=== PATIENT | male | born 1955 | race Two or more races ===

== ENCOUNTER 2023-01-12 05:24 | Inpatient (IN) | payer OTHER ==
[2023-01-12] VITALS (13 sets, daily range): BP systolic 103–185; BP diastolic 50–88; TEMP 98.1–98.8; O2SAT 91–98
[~2023-01-12] VITALS: Ht 167.6 cm; Wt 97.5 kg
[2023-01-12 06:18] LABS: BASOPHILS # (AUTO) 0.1 K/uL (0.0-0.2); BASOPHILS % (AUTO) 0.4 % (0.0-2.0); EOSINOPHILS # (AUTO) 0.1 K/uL (0.0-0.7); EOSINOPHILS % (AUTO) 0.6 % (0.0-6.0); HEMATOCRIT 38 % (39-51); HEMOGLOBIN 12.8 g/dL (13.5-17.5); LYMPHOCYTES # (AUTO) 1.7 K/uL (0.8-4.8); LYMPHOCYTES % (AUTO) 13.5 % (20.0-44.0); MEAN CORPUSCULAR HEMOGLOBIN 30 PG (26.0-33.0); MEAN CORPUSCULAR HGB CONC 34 g/dl (31.0-36.0); MEAN CORPUSCULAR VOLUME 90 fL (80-96); MONOCYTES % (AUTO) 7.8 % (2.0-12.0); NEUTROPHILS % (AUTO) 77.7 % (43.0-81.0); PLATELET COUNT (AUTO) 301 K/uL (150-450); RED BLOOD CELL COUNT(AUTO) 4.27 MIL/uL (4.5-6.0); WHITE BLOOD COUNT (AUTO) 12.9 K/uL (4.3-11.0)
[2023-01-12 06:31] LABS: CALCIUM, SERUM 9.3 mg/dL (8.5-10.1); POTASSIUM 4.1 mmol/L (3.5-5.1)
[2023-01-12] MEDS ORDERED: GELATIN SPONGE,ABSORBABLE 1 SPONGE SPONGE TP ONE (06:48)
[2023-01-12] MEDS ORDERED: LIDOCAINE 1% INJ 50 ML MDV IJ ONE (06:48)
[2023-01-12] MEDS ORDERED: CELLULOSE,OXIDIZED 1 EA PACK MC ONE (06:48)
[2023-01-12] MEDS ORDERED: THROMBIN (BOVINE) 5,000 UNITS VIAL TP ONE (06:49)
[2023-01-12] MEDS ORDERED: HEMOSTATIC MATRIX 8 ML 1 EACH PAD MC ONE (07:00)
[2023-01-12] MEDS ORDERED: FENTANYL PF 250MCG/5ML AMPUL ONE (07:25)
[2023-01-12] MEDS ORDERED: ROCURONIUM BROMIDE 50 MG/5 ML ONE ×2 (07:26→09:33)
[2023-01-12] MEDS ORDERED: INSULIN REGULAR, HUMAN 100 UNIT/ML 10 ML VIAL ONE (07:34)
[2023-01-12] MEDS ORDERED: BUPIVACAINE 0.5 % PF 150 MG/30 ML VIAL ONE (07:51)
[2023-01-12] MEDS ORDERED: ROPIVACAINE HCL 0.5% 5 MG/ML 30ML VIAL ONE (08:41)
[2023-01-12] MEDS ORDERED: ROPIVACAINE HCL 0.5% 5 MG/ML 30ML VIAL IJ ONE (08:52)
[2023-01-12] MEDS ORDERED: HEPARIN SODIUM, PORCINE 5000 UNITS/1 ML VIAL ONE ×2 (08:53)
[2023-01-12] MEDS ORDERED: NTG 50 MG/D5W250 ML BOTTL 250 ML IV PRN (09:00)
[2023-01-12] MEDS ORDERED: POLYMYXIN B SULFATE 500,000 UNITS ONE (09:24)
[2023-01-12] MEDS ORDERED: BACITRACIN ZINC OINT (15 GM) 15 GM TUBE TP ONE (10:08)
[2023-01-12] MEDS ORDERED: BACITRACIN ZINC OINT PACKET 1 EA PACKET TP ONE (10:09)
[2023-01-12] MEDS ORDERED: FENTANYL PF 100MCG/2ML AMPUL ONE (10:48)
[2023-01-12] MEDS ORDERED: MORPHINE SULFATE INJ 4 MG/ML DISP.SYRIN IV PRN (11:30)
[2023-01-12] MEDS ORDERED: HYDROCODONE/APAP 7.5/325MG 1 EACH TABLET PO PRN (11:30)
[2023-01-12] MEDS: dexaMETHasone SOD PHOSPHATE 4 MG/ML VIAL IV SCH ×2 (11:44→20:44)
[2023-01-12] MEDS: IV NS 0.9% 1,000 ML IV PRN ×2 (11:44→23:51)
[2023-01-12] MEDS: CLONIDINE HCL 0.1 MG TABLET PO PRN (11:45)
[2023-01-12] MEDS: MORPHINE SULFATE INJ 2 MG/ML DISP.SYRIN IV PRN (11:58)
[2023-01-12] MEDS ORDERED: MENTHOL/CETYLPYRD (CEPACOL) 1 LOZ LOZENGE PO PRN (12:00)
[2023-01-12] MEDS ORDERED: ONDANSETRON HCL/PF 4 MG/2 ML VIAL IV PRN (12:00)
[2023-01-12] MEDS ORDERED: AMLO10TA4 PO (12:14)
[2023-01-12] MEDS ORDERED: SITA100T PO (12:14)
[2023-01-12] MEDS ORDERED: ACET-868 PO (12:14)
[2023-01-12] MEDS ORDERED: ATOR20TA PO (12:14)
[2023-01-12] MEDS ORDERED: BENA40TA8 PO (12:14)
[2023-01-12] MEDS ORDERED: PRED10TA PO (12:14)
[2023-01-12] MEDS ORDERED: ASPI-1420 PO (12:14)
[2023-01-12] MEDS ORDERED: CELE200C PO (12:14)
[2023-01-12] MEDS ORDERED: METH2.5T PO (12:14)
[2023-01-12] MEDS ORDERED: FLUT16SP16 BNOSTRILS (12:14)
[2023-01-12] MEDS ORDERED: DICL100G26 TP (12:14)
[2023-01-12] MEDS ORDERED: INSU100V30 SQ (12:14)
[2023-01-12] MEDS ORDERED: METF-442 PO (12:14)
[2023-01-12] MEDS ORDERED: INSU100I26 SQ (12:14)
[2023-01-12] MEDS ORDERED: ALBU18HF2 IH (12:15)
[2023-01-12] MEDS ORDERED: BLOO-668 IN (12:15)
[2023-01-12 12:52] LABS: BASOPHILS % (AUTO) 0.2 % (0.0-2.0); HEMATOCRIT 36 % (39-51); HEMOGLOBIN 11.9 g/dL (13.5-17.5); LYMPHOCYTES # (AUTO) 0.5 K/uL (0.8-4.8); LYMPHOCYTES % (AUTO) 3.1 % (20.0-44.0); MEAN CORPUSCULAR HEMOGLOBIN 30 PG (26.0-33.0); MEAN CORPUSCULAR HGB CONC 33 g/dl (31.0-36.0); MEAN CORPUSCULAR VOLUME 91 fL (80-96); MONOCYTES # (AUTO) 0.4 K/uL (0.1-1.30); MONOCYTES % (AUTO) 2.5 % (2.0-12.0); NEUTROPHILS # (AUTO) 15.1 K/uL (1.8-8.9); NEUTROPHILS % (AUTO) 94.2 % (43.0-81.0); PLATELET COUNT (AUTO) 273 K/uL (150-450); RED BLOOD CELL COUNT(AUTO) 4.01 MIL/uL (4.5-6.0); RED CELL DISTRIBUTION WIDTH 14.7 % (11.5-15.0)
[2023-01-12 12:59] LABS: CALCIUM, SERUM 8.2 mg/dL (8.5-10.1); POTASSIUM 4.3 mmol/L (3.5-5.1)
[2023-01-12] MEDS ORDERED: ONDANSETRON HCL/PF 4 MG/2 ML VIAL IVP PRN (13:30)
[2023-01-12] MEDS ORDERED: ZOLPIDEM TARTRATE 5 MG TABLET PO PRN (13:30)
[2023-01-12] MEDS ORDERED: Z GUARD REMEDY 4 OZ OINT TP PRN (13:30)
[2023-01-12] MEDS ORDERED: MAGNESIUM HYDROXIDE 30 ML UDC PO PRN (13:30)
[2023-01-12] MEDS ORDERED: MAG HYDROX/AL HYDROX/SIMETH 30 ML UDC PO PRN (13:30)
[2023-01-12] MEDS ORDERED: ACETAMINOPHEN 325 MG TABLET PO PRN (13:30)
[2023-01-12] MEDS ORDERED: DEXTROSE 50%-WATER 50 ML DISP.SYRIN IV PRN (13:30)
[2023-01-12] MEDS ORDERED: ALBUTEROL FS 2.5 MG/0.5 ML VIAL.NEB IH PRN (14:00)
[2023-01-12] MEDS: ANCEF 1 GM/50 ML D5W IV SCH ×4 (14:38→22:54)
[2023-01-12] MEDS: BLOOD SUGAR DIAGNOSTIC 1 EACH STRIP VI SCH ×2 (16:55→21:10)
[2023-01-12] MEDS: *INSULIN REGULAR(HUMULIN R)HUM 100 UNIT/ML VIAL SQ PRN ×2 (16:57→21:12)
[2023-01-12] MEDS: ENOXAPARIN SODIUM 40 MG/0.4 ML DISP.SYRIN SQ SCH (20:45)
[2023-01-12] MEDS: ATORVASTATIN 10 MG TABLET PO SCH (21:10)
[2023-01-12] MEDS: INSULIN GLARGINE, 100 UNIT/ML CARTRIDGE SQ SCH (21:11)
[2023-01-12] MEDS ORDERED: HYDROCODONE/APAP 5/325MG TABLET ONE (22:52)
[2023-01-13] VITALS (19 sets, daily range): BP systolic 104–176; BP diastolic 53–86; TEMP 98–98.6; O2SAT 91–98
[2023-01-13 04:24] LABS: CALCIUM, SERUM 8.6 mg/dL (8.5-10.1); CREATININE 1.2 mg/dL (0.6-1.3); PHOSPHORUS 4.1 mg/dL (2.5-4.9); POTASSIUM 4.5 mmol/L (3.5-5.1)
[2023-01-13 04:33] LABS: BASOPHILS % (AUTO) 0.2 % (0.0-2.0); HEMATOCRIT 37 % (39-51); HEMOGLOBIN 12.1 g/dL (13.5-17.5); LYMPHOCYTES # (AUTO) 1.3 K/uL (0.8-4.8); LYMPHOCYTES % (AUTO) 8.8 % (20.0-44.0); MEAN CORPUSCULAR HEMOGLOBIN 29 PG (26.0-33.0); MEAN CORPUSCULAR HGB CONC 32 g/dl (31.0-36.0); MEAN CORPUSCULAR VOLUME 91 fL (80-96); MONOCYTES # (AUTO) 0.6 K/uL (0.1-1.30); MONOCYTES % (AUTO) 3.8 % (2.0-12.0); NEUTROPHILS # (AUTO) 13.3 K/uL (1.8-8.9); NEUTROPHILS % (AUTO) 87.2 % (43.0-81.0); PLATELET COUNT (AUTO) 309 K/uL (150-450); RED BLOOD CELL COUNT(AUTO) 4.12 MIL/uL (4.5-6.0); WHITE BLOOD COUNT (AUTO) 15.3 K/uL (4.3-11.0)
[2023-01-13] MEDS: ANCEF 1 GM/50 ML D5W IV SCH ×2 (06:03)
[2023-01-13] MEDS: INSULIN REGULAR, HUMAN 100 UNIT/ML 3 ML VIAL SQ PRN ×3 (07:58→17:24)
[2023-01-13] MEDS: BLOOD SUGAR DIAGNOSTIC 1 EACH STRIP VI SCH ×4 (07:59→21:43)
[2023-01-13] MEDS: AMLODIPINE BESYLATE 10 MG TABLET PO SCH (08:02)
[2023-01-13] MEDS: MULTIVITAMINS,THERAGRAN 1 UDTAB TABLET PO SCH (08:03)
[2023-01-13] MEDS: BENAZEPRIL HCL 20 MG TABLET PO SCH (08:03)
[2023-01-13] MEDS: FLUTICASONE PROPIONATE 16 GM BOTTLE NS SCH (08:04)
[2023-01-13] MEDS: CLONIDINE HCL 0.1 MG TABLET PO PRN (09:05)
[2023-01-13] MEDS: ASPIRIN EC 81 MG TABLET.DR PO SCH (11:45)
[2023-01-13] MEDS: METFORMIN 500 MG TABLET PO SCH (16:57)
[2023-01-13] MEDS: ENOXAPARIN SODIUM 40 MG/0.4 ML DISP.SYRIN SQ SCH (20:12)
[2023-01-13] MEDS: *INSULIN REGULAR(HUMULIN R)HUM 100 UNIT/ML VIAL SQ PRN (21:37)
[2023-01-13] MEDS: INSULIN GLARGINE, 100 UNIT/ML CARTRIDGE SQ SCH (21:41)
[2023-01-13] MEDS: ATORVASTATIN 10 MG TABLET PO SCH (21:43)
[2023-01-14] VITALS (7 sets, daily range): BP systolic 121–159; BP diastolic 70–97; TEMP 97.7–98; O2SAT 93–97
[2023-01-14] MEDS: IV NS 0.9% 1,000 ML IV PRN ×2 (02:34→18:48)
[2023-01-14] MEDS: BLOOD SUGAR DIAGNOSTIC 1 EACH STRIP VI SCH ×4 (06:33→22:41)
[2023-01-14] MEDS: INSULIN REGULAR, HUMAN 100 UNIT/ML 3 ML VIAL SQ PRN ×3 (06:37→17:51)
[2023-01-14 06:53] LABS: BASOPHILS % (AUTO) 0.3 % (0.0-2.0); EOSINOPHILS # (AUTO) 0.1 K/uL (0.0-0.7); HEMATOCRIT 36 % (39-51); HEMOGLOBIN 11.7 g/dL (13.5-17.5); LYMPHOCYTES # (AUTO) 2.2 K/uL (0.8-4.8); LYMPHOCYTES % (AUTO) 17.3 % (20.0-44.0); MEAN CORPUSCULAR HEMOGLOBIN 30 PG (26.0-33.0); MEAN CORPUSCULAR HGB CONC 33 g/dl (31.0-36.0); MEAN CORPUSCULAR VOLUME 91 fL (80-96); NEUTROPHILS # (AUTO) 9.4 K/uL (1.8-8.9); NEUTROPHILS % (AUTO) 73.4 % (43.0-81.0); PLATELET COUNT (AUTO) 284 K/uL (150-450); RED BLOOD CELL COUNT(AUTO) 3.92 MIL/uL (4.5-6.0); RED CELL DISTRIBUTION WIDTH 14.8 % (11.5-15.0); WHITE BLOOD COUNT (AUTO) 12.9 K/uL (4.3-11.0)
[2023-01-14 07:07] LABS: CALCIUM, SERUM 8.7 mg/dL (8.5-10.1); CREATININE 0.9 mg/dL (0.6-1.3); MAGNESIUM 1.8 mg/dL (1.8-2.4); PHOSPHORUS 2.7 mg/dL (2.5-4.9); POTASSIUM 4.1 mmol/L (3.5-5.1)
[2023-01-14] MEDS: FLUTICASONE PROPIONATE 16 GM BOTTLE NS SCH (09:18)
[2023-01-14] MEDS: ASPIRIN EC 81 MG TABLET.DR PO SCH (09:19)
[2023-01-14] MEDS: AMLODIPINE BESYLATE 10 MG TABLET PO SCH (09:19)
[2023-01-14] MEDS: METFORMIN 500 MG TABLET PO SCH ×2 (09:19→17:49)
[2023-01-14] MEDS: MULTIVITAMINS,THERAGRAN 1 UDTAB TABLET PO SCH (09:19)
[2023-01-14] MEDS: BENAZEPRIL HCL 20 MG TABLET PO SCH (09:20)
[2023-01-14] MEDS: ENOXAPARIN SODIUM 40 MG/0.4 ML DISP.SYRIN SQ SCH (20:14)
[2023-01-14] MEDS: ATORVASTATIN 10 MG TABLET PO SCH (22:42)
[2023-01-14] MEDS: INSULIN GLARGINE, 100 UNIT/ML CARTRIDGE SQ SCH (22:43)
[2023-01-14] MEDS: *INSULIN REGULAR(HUMULIN R)HUM 100 UNIT/ML VIAL SQ PRN (22:43)
[2023-01-14] MEDS: MORPHINE SULFATE INJ 2 MG/ML DISP.SYRIN IV PRN (23:16)
[2023-01-15] VITALS: BP_SYST 129; BP_SYST 132; BP_DIAS 65; BP_DIAS 77; O2SAT 95; O2SAT 96
[2023-01-15 04:00] VITALS: BP 132/77; O2SAT 95
[2023-01-15 06:27] LABS: BASOPHILS % (AUTO) 0.4 % (0.0-2.0); EOSINOPHILS # (AUTO) 0.2 K/uL (0.0-0.7); EOSINOPHILS % (AUTO) 2.1 % (0.0-6.0); HEMATOCRIT 35 % (39-51); HEMOGLOBIN 11.6 g/dL (13.5-17.5); LYMPHOCYTES # (AUTO) 2.4 K/uL (0.8-4.8); LYMPHOCYTES % (AUTO) 21.7 % (20.0-44.0); MEAN CORPUSCULAR HEMOGLOBIN 31 PG (26.0-33.0); MEAN CORPUSCULAR HGB CONC 34 g/dl (31.0-36.0); MEAN CORPUSCULAR VOLUME 91 fL (80-96); MONOCYTES # (AUTO) 1.1 K/uL (0.1-1.30); MONOCYTES % (AUTO) 9.8 % (2.0-12.0); NEUTROPHILS # (AUTO) 7.2 K/uL (1.8-8.9); PLATELET COUNT (AUTO) 276 K/uL (150-450); RED BLOOD CELL COUNT(AUTO) 3.79 MIL/uL (4.5-6.0); WHITE BLOOD COUNT (AUTO) 10.9 K/uL (4.3-11.0)
[2023-01-15] MEDS: BLOOD SUGAR DIAGNOSTIC 1 EACH STRIP VI SCH ×2 (06:58→12:09)
[2023-01-15] MEDS: INSULIN REGULAR, HUMAN 100 UNIT/ML 3 ML VIAL SQ PRN ×2 (06:58→14:20)
[2023-01-15 07:36] LABS: CALCIUM, SERUM 8.2 mg/dL (8.5-10.1); CREATININE 0.9 mg/dL (0.6-1.3); MAGNESIUM 1.7 mg/dL (1.8-2.4); PHOSPHORUS 3.4 mg/dL (2.5-4.9); POTASSIUM 4.1 mmol/L (3.5-5.1)
[2023-01-15 08:00] VITALS: BP 149/73; TEMP 99; O2SAT 94
[2023-01-15] MEDS: ASPIRIN EC 81 MG TABLET.DR PO SCH (08:10)
[2023-01-15] MEDS: METFORMIN 500 MG TABLET PO SCH (08:10)
[2023-01-15] MEDS: MULTIVITAMINS,THERAGRAN 1 UDTAB TABLET PO SCH (08:11)
[2023-01-15] MEDS: FLUTICASONE PROPIONATE 16 GM BOTTLE NS SCH (08:12)
[2023-01-15] MEDS: BENAZEPRIL HCL 20 MG TABLET PO SCH (08:47)
[2023-01-15] MEDS: AMLODIPINE BESYLATE 10 MG TABLET PO SCH (08:47)
[2023-01-15] MEDS ORDERED: MAGNESIUM OXIDE 400 MG TABLET PO ONE (10:00)
[2023-01-15 12:00] VITALS: BP 136/71; TEMP 98.2; O2SAT 94
[2023-01-15] MEDS ORDERED: diphenhydrAMINE HCL ELIX 25 MG/10 ML UDC PO PRN (12:00)
[2023-01-15] MEDS ORDERED: CLON0.1T PO (13:19)
== END 2023-01-15 16:29 | disposition home or self-care (01) | DRG 26 ==
LOC: DS 05:24 → MED 05:25 → ICU 11:36 → TELE 01-13 11:54
PROVIDERS: ADMIT Student in an Organized Health Care Education/Training Program; ATTEND Student in an Organized Health Care Education/Training Program
PROC: 03CK3ZZ Extirpation of Matter from Right Internal Carotid Artery, Percutaneous Approach (ICD-10-PCS; principal; 2023-01-12)
PROC: 03UK3JZ Supplement Right Internal Carotid Artery with Synthetic Substitute, Percutaneous Approach (ICD-10-PCS; 2023-01-12)
DX: I65.21 Occlusion and stenosis of right carotid artery (principal); E87.1 Hypo-osmolality and hyponatremia; E11.9 Type 2 diabetes mellitus without complications; I10 Essential (primary) hypertension; M06.9 Rheumatoid arthritis, unspecified; D64.9 Anemia, unspecified; E87.5 Hyperkalemia; G47.30 Sleep apnea, unspecified; E66.01 Morbid (severe) obesity due to excess calories; Z79.899 Other long term (current) drug therapy; Z68.34 Body mass index [BMI] 34.0-34.9, adult; Z79.51 Long term (current) use of inhaled steroids; Z79.4 Long term (current) use of insulin; Z79.82 Long term (current) use of aspirin; Z79.84 Long term (current) use of oral hypoglycemic drugs; J45.909 Unspecified asthma, uncomplicated; E78.00 Pure hypercholesterolemia, unspecified; Z79.631 Long term (current) use of antimetabolite agent
CPT/HCPCS: 36415; 71045-TC; 80048-TC; 82962-TC; 83735-TC; 84100-TC; 85025-TC; 86850-TC; 87081-TC; 97116-TC; 97530-TC; A4223; A6209; A6253; C1751; C1768; G0378; J0330; J0690; J1100; J1644; J1650; J1815; J1885; J2270; J2405; J2704; J2795; J3010; J3490; J7030; J7060